=== PATIENT | male | born 1945 | race Caucasian/White ===

== ENCOUNTER 2019-02-10 07:30 | Outpatient (CLI) | payer OTHER ==
--- NOTE | 2019-02-10 11:00 | NM ---
HEPATOBILIARY SCAN: HISTORY:Unspecified abdominal pain RADIOPHARMACEUTICAL: 5.2 mCi Technetium 99m Mebrofenin injected intravenously FINDINGS: There is normal tracer extraction by the liver with normal excretion into the biliary tracts and smal l bowel loops and normal filling of the gallbladder. The calculated gallbladder ejection fraction following an oral fatty meal measures 42%. IMPRESSION:Normal exam.
== END 2019-02-10 07:31 | disposition home or self-care (01) ==
LOC: NM 07:30
PROVIDERS: ATTEND Family Medicine
DX: R10.9 Unspecified abdominal pain (principal)
CPT/HCPCS: 78227; A9537

== ENCOUNTER 2021-07-04 09:31 | Outpatient (CLI) | payer MEDICARE, OTHER | END 2021-07-04 09:32 | disposition home or self-care (01) | LOC: MRI 09:31 | PROVIDERS: ATTEND Orthopaedic Surgery | DX: M25.572 Pain in left ankle and joints of left foot (principal); M19.071 Primary osteoarthritis, right ankle and foot; S93.402A Sprain of unspecified ligament of left ankle, initial encounter; M25.871 Other specified joint disorders, right ankle and foot ==